=== PATIENT | male | born 1960 | race Caucasian/White ===

== ENCOUNTER 2017-06-18 09:32 | Inpatient (IN) | payer OTHER ==
[~2017-06-18] VITALS: Ht 172.7 cm; Wt 78.9 kg
[~2017-06-18 09:32] MED LIST: BENICAR40 MG PO; BRILINTA90 MG PO; HYDROXYZINE HCL25 MG PO; LEXAPRO10 MG PO; NORVASC5 MG PO; PRAVACHOL40 MG PO; PRAVASTATIN SOD40 MG PO; TEMAZEPAM15 MG PO; TERAZOSIN HCL1 MG PO; TERAZOSIN HCL2 MG PO; TRIBENZOR 40-11 EAC1 PO; VANCOMYCIN1 GM/250 M IV
[2017-06-18] MEDS ORDERED: MORPHINE SULFATE 4 MG/ML SYR IV STA (10:23)
[2017-06-18] MEDS ORDERED: ONDANSETRON HCL INJ 2 MG/ML VIAL IV STA (10:23)
[2017-06-18] MEDS ORDERED: SODIUM CHLORIDE 0.9% 1000ML 1,000 ML IV STA (10:23)
[2017-06-18] MEDS ORDERED: CLINDAMYCIN PHOS 900MG/ D5W 50 50 ML IV ONE (10:30)
[2017-06-18 11:18] LABS: BASOPHILS # (AUTO) 0.1 (0.0-0.1); BASOPHILS % 0.7 % (0.0-1.0); EOSINOPHILS # (AUTO) 0.1 (0.0-0.4); EOSINOPHILS % 0.8 % (0.0-6.0); HEMATOCRIT 36.4 % (38.2-49.6); HEMOGLOBIN 12.5 g/dL (14.0-18.0); LYMPHOCYTES # (AUTO) 0.6 (1.0-3.2); LYMPHOCYTES % 3.4 % (18.0-39.1); MEAN CORPUSCULAR HEMOGLOBIN 31.3 pg (28-32); MEAN CORPUSCULAR HGB CONC 34.3 g/dL (31-35); MONOCYTES # (AUTO) 1.9 (0.2-0.8); MONOCYTES % 10.2 % (4.4-11.3); NEUTROPHILS # (AUTO) 15.5 (2.1-6.9); NEUTROPHILS % 84.1 % (38.7-80.0); PLATELET COUNT 308 x10e3/uL (140-360); RED CELL DISTRIBUTION WIDTH 12.8 % (11.7-14.4)
[2017-06-18] MEDS ORDERED: MORPHINE SULFATE 2 MG/ML SYR ONE (11:29)
[2017-06-18 12:05] LABS: ALANINE AMINOTRANSFERASE 13 IU/L (0-55); ALBUMIN 3.6 g/dL (3.5-5.0); ALKALINE PHOSPHATASE 133 IU/L (40-150); ANION GAP 16.2 mmol/L (8-16); BLOOD UREA NITROGEN 11 mg/dL (7-26); BUN/CREATININE RATIO 15 (6-25); CALCIUM 9.3 mg/dL (8.4-10.2); CARBON DIOXIDE 23 mmol/L (22-29); CHLORIDE 100 mmol/L (98-107); CREATININE, SERUM 0.73 mg/dL (0.72-1.25); EST GLOMERULAR FILTRATION RATE > 60 ML/MIN (60-); GLUCOSE 88 mg/dL (74-118); POTASSIUM 4.2 mmol/L (3.5-5.1); SODIUM 135 mmol/L (136-145)
[2017-06-18] MEDS ORDERED: HYDROMORPHONE 2MG/ML INJ IV ONE (13:00)
[2017-06-18] MEDS ORDERED: HYDROMORPHONE 1MG/1ML INJ IV NR ×2 (13:30)
[2017-06-18] MEDS ORDERED: SODIUM CHLORIDE FLUSH 10 ML SYR INJ PRN (14:45)
[2017-06-18] MEDS ORDERED: ONDANSETRON HCL INJ 2 MG/ML VIAL IV PRN (14:45)
[2017-06-18] MEDS ORDERED: NIFEDIPINE ER30 M1 PO (15:28)
--- NOTE | 2017-06-18 16:01 | History and Physical ---
Mr. Urbina came in for right upper extremity and elbow swelling. HISTORY OF PRESENT ILLNESS: Mr. Gerald Urbina has a history of hypertension, history of prostate CA, history of hyperlipidemia. He was in his usual state of health until Thursday when the patient started with some swelling in the right elbow, which was characterized as pain and some swelling. The patient's pain and swelling got worse over the week. This morning, the patient came to the clinic and was found to have diffuse erythema, swelling, fever, and also pain and tenderness on moving his elbow, too. PAST MEDICAL HISTORY: History of hypertension. SURGICAL HISTORY: History of prostatectomy, hernia repair and back surgeries. The patient also had incision and drainage on multiple times in the ears too, also in the elbow in the past. MEDICATIONS: See nurse's note. ALLERGIES: SEE NURSE'S NOTE. SOCIAL HISTORY: No EtOH. No IV drug abuse. No smoking either. REVIEW OF SYSTEMS: Negative for chest pain. No shortness of breath. No nausea, vomiting, or diarrhea. No constipation or rectal bleeding. No hematochezia or hematemesis. Positive for some headache, but no blurry vision. PHYSICAL EXAMINATION VITALS: Stable. HEENT: Normocephalic and atraumatic. The pupils react to light and accommodation. CVS: S1 and S2 normal, regular rate and rhythm. ABDOMEN: Nontender and nondistended. UPPER EXTREMITIES: Right is tender to touch. Positive for pain and decreased range of motion. Positive for erythema and also swelling in the elbow. NEUROLOGIC: Alert and oriented times 3. No sensory or motor deficit noted. LABS: White count 13,000, hemoglobin 12.5, hematocrit 36.4. Chemistries: Lactic acid 7.3. ESR was 25. ASSESSMENT 1. Right upper extremity cellulitis. 2. Questionable septic arthritis. Consult with Dr. Hdz will be done. Also, consult with Dr. Espinosa will be done. PICC line was started. The patient will be started on clindamycin. He is allergic to vancomycin. Further recommendations per clinical course. We will continue to monitor the patient and check labs in the morning. Probably PICC line will also be started. Job#: [id number]
[2017-06-18 18:05] VITALS: BP 152/87
[2017-06-18] MEDS ORDERED: SODIUM CHLORIDE 0.9% 250ML 250 ML ONE (18:31)
[2017-06-18] MEDS: HYDROMORPHONE 1MG/1ML INJ IV PRN (18:38)
[2017-06-18] MEDS: CLINDAMYCIN 300MG 50 ML IV SCH (18:38)
[2017-06-18 19:00] VITALS: BP 152/87
[2017-06-18] MEDS ORDERED: SEVOFLURANE INHAL SOLN 250 ML PEN BTL ONE (19:43)
[2017-06-18] MEDS ORDERED: LIDOCAINE HCL 2% LOCAL INJ 5 ML SDV VIAL INJ ONE (19:43)
[2017-06-18] MEDS ORDERED: METOCLOPRAMIDE HCL 10 MG/2ML VIAL ONE (19:43)
[2017-06-18] MEDS ORDERED: ONDANSETRON HCL INJ 2 MG/ML VIAL ONE (19:43)
[2017-06-18] MEDS ORDERED: PROPOFOL IV EMULSION 10 MG/ML 20 ML VIAL ONE (19:43)
[2017-06-18] MEDS ORDERED: ROCURONIUM BROMIDE 10 MG/ML 5ML VIAL ONE (19:43)
[2017-06-18 20:00] VITALS: BP 138/83
[2017-06-18 20:12] VITALS: BP 138/83
--- NOTE | 2017-06-18 23:23 | Diagnostic Imaging Report ---
EXAM: CHEST XRAY LINE PLACEMENT, AP 1 view INDICATION: PICC placement COMPARISON: None FINDINGS: LINES/TUBES: Left approach PICC terminates in the expected location of the distal superior vena cava. LUNGS: No consolidations or edema. PLEURA: No effusions or pneumothorax. HEART AND MEDIASTINUM: Normal size and contour. BONES AND SOFT TISSUES: No acute findings. IMPRESSION: Left approach PICC terminates in the expected location of the distal superior vena cava. Signed by: Dr. Cristina Madera M.D. on 06/18/2017 11:20 PM
[2017-06-19] MEDS: HYDROMORPHONE 1MG/1ML INJ IV PRN ×2 (00:02→14:06)
[2017-06-19] MEDS: CLINDAMYCIN 300MG 50 ML IV SCH ×4 (00:20→18:16)
[2017-06-19] MEDS: ACETAMINOPHEN 325 MG TAB PO PRN ×2 (00:37→14:06)
[2017-06-19 01:01] VITALS: BP 120/77
[2017-06-19 05:47] VITALS: BP 139/70
[2017-06-19 06:22] LABS: BASOPHILS # (AUTO) 0.1 (0.0-0.1); BASOPHILS % 0.6 % (0.0-1.0); EOSINOPHILS # (AUTO) 0.5 (0.0-0.4); EOSINOPHILS % 2.7 % (0.0-6.0); HEMATOCRIT 31.4 % (38.2-49.6); HEMOGLOBIN 10.5 g/dL (14.0-18.0); LYMPHOCYTES # (AUTO) 0.5 (1.0-3.2); LYMPHOCYTES % 3.1 % (18.0-39.1); MEAN CORPUSCULAR HGB CONC 33.4 g/dL (31-35); MEAN CORPUSCULAR VOLUME 92.6 fL (81-99); MONOCYTES # (AUTO) 1.9 (0.2-0.8); MONOCYTES % 11.2 % (4.4-11.3); NEUTROPHILS % 81.5 % (38.7-80.0); PLATELET COUNT 239 x10e3/uL (140-360); RED BLOOD COUNT 3.39 x10e6/uL (4.3-5.7); RED CELL DISTRIBUTION WIDTH 13.1 % (11.7-14.4)
--- NOTE | 2017-06-19 07:41 | Diagnostic Imaging Report ---
Right Elbow MRI without contrast. History: Elbow pain. Infection. Septic joint. Comparison: None Technique: Multiplanar multisequence MRI of the elbow without contrast Findings: There is abnormal skin thickening with adjacent abnormal soft tissue edema at the posterior aspect of the elbow. There are what appear to be small foci of air in the subcutaneous tissues best seen on coronal series 6 image 9, sagittal series 5 image 3 and axial series 4 image 22. There is an adjacent ill-defined fluid collection adjacent to the olecranon best seen on series 8 image 17 through 22. This measures 1.5 cm in maximal dimension. There is focal cortical erosion at the posterior lateral humeral condyle as seen on coronal series 6 image 12 and sagittal series 5 image 7 as well as axial series 3 image 18. There is an elbow joint effusion and synovitis. There is abnormal edema in the adjacent posterior elbow musculature. The common extensor tendon origin is normal. The common flexor tendon origin is normal. The anterior and posterior bands of the MCL are normal. The lateral ulnar collateral ligament and radial collateral ligament proper are normal. Signal intensity within the ulnar nerve is normal. The biceps and brachialis tendon insertions are normal. The triceps tendon is normal. No fracture, osteonecrosis, or dislocation. Impression: Findings worrisome for cellulitis, developing phlegmon, myositis, septic arthritis and early osteomyelitis in the elbow as described above. Findings discussed by Dr. Martin with nurse Ms. Baron who is taking care of the patient on June 19, 2017 at 7:30 AM Signed by: Dr. Catrachito Martin M.D. on 06/19/2017 7:38 AM
[2017-06-19 08:00] VITALS: BP 141/81
[2017-06-19 10:46] LABS: ANISOCYTOSIS SLIGHT; EOSINOPHILS % (MANUAL) 8 % (0-7); HYPOCHROMASIA SLIGHT; MONOCYTES % (MANUAL) 5 % (3.4-9.0); NEUTROPHILS % (MANUAL) 87 % (40-74); PLATELET ESTIMATE ADEQUATE; PLATELET MORPHOLOGY COMMENT NORMAL; RBC MORPHOLOGY COMMENT NORMAL
[2017-06-19 12:00] VITALS: BP 181/95
[2017-06-19] MEDS ORDERED: MIDAZOLAM HCL 2 MG/2 ML VIAL ONE (13:56)
[2017-06-19] MEDS ORDERED: FENTANYL CITRATE/PF 100MCG/2 ML INJ ONE (13:56)
[2017-06-19 16:00] VITALS: BP 120/71
[2017-06-19] MEDS ORDERED: DAPTOMYCIN 400 MG in SODIUM CHLORIDE 0.9% 100 ML IV SCH (18:15)
[2017-06-19 20:00] VITALS: BP 135/68
[2017-06-19] MEDS ORDERED: BACITRACIN 50,000 UNIT VIAL ONE ×2 (21:08→22:54)
[2017-06-19] MEDS ORDERED: ACETAMINOPHEN 1000 MG/100 ML IV PRN (23:45)
[2017-06-19] MEDS ORDERED: NALOXONE HCL INJ 0.4 MG/ML AMP IV PRN (23:45)
[2017-06-19] MEDS ORDERED: ONDANSETRON HCL INJ 2 MG/ML VIAL IV PRN (23:45)
[2017-06-19] MEDS ORDERED: DIPHENHYDRAMINE HCL INJ 50 MG/ML VIAL IM/IV PRN (23:45)
[2017-06-19] MEDS ORDERED: HYDROMORPHONE 0.2MG/ML-SOD CHL 30ML PCA SYRINGE IV PRN (23:45)
[2017-06-19] MEDS ORDERED: SODIUM CHLORIDE 0.9% 1000ML 1,000 ML IV SCH (23:59)
[2017-06-20] MEDS ORDERED: IPRATROPIUM BROMIDE 0.02% 2.5 ML NEB ONE (00:21)
[2017-06-20 01:09] VITALS: BP 134/60
[2017-06-20] MEDS: SODIUM CHLORIDE 0.9% 1000ML 1,000 ML IV SCH ×3 (01:12→21:47)
--- NOTE | 2017-06-20 01:47 | Operative Report ---
DATE OF PROCEDURE: June 19, 2017 PREOPERATIVE DIAGNOSES: 1. Cellulitis, right arm. 2. Septic elbow, right arm. POSTOPERATIVE DIAGNOSES: 1. Cellulitis, right arm. 2. Skin necrotitis, right arm. 3. Right olecranon septic bursitis. 4. Right septic elbow. OPERATIONS/PROCEDURES PERFORMED: Patient underwent: 1. Irrigation and debridement of the right septic elbow. 2. Irrigation and debridement of the right septic bursitis. 3. Debridement of soft tissue, skin, blisters, and necrotitis. STOPPER MAKER: None. INTRAOPERATIVE CONSULTATION: With Dr. Héctor Whitney of general surgery department. ANESTHESIA: General endotracheal intubation anesthesia. COMPLICATIONS: None. BRIEF DESCRIPTION OF PATIENT'S OPERATIVE PROCEDURE: Mr. Urbina was taken to the operating room and placed in the supine position on the operating room table. Following induction of general anesthesia as well as endotracheal intubation, the patient's right upper extremity was examined under anesthesia. He was found to have swelling involving the arm extending from the mid upper arm and to the level of the wrist. There was erythema in the forearm. The patient had multiple soft tissue superficial skin lesions and eschars in the arm and upper arm. The patient additionally had a sebaceous cyst just proximal to the antecubital fossa. He had a well-healed incision over his olecranon process. There were multiple areas of early skin fluffing and superficial blisters in the forearm, which contained serous fluid. The patient's upper extremity was prepped and draped in standard surgical fashion. The case was begun by creating incision beginning at the level of lateral epicondyle and extending distally over the proximal radius. This incision was carried through skin only. Blunt dissection was used to deepen the incision to the level of the insertion site for the mobile wad. This was incised in line with the skin incision to the level of joint capsule. The joint capsule was then opened and purulent-appearing fluid was expressed from the joint. Cultures were taken at this time. The wound was thoroughly irrigated with 3 liters of Bacitracin-laden normal saline, followed by 3 liters of regular normal saline. The joint surfaces were evaluated and there was no evidence of cartilage damage. The wound was then closed in a multilayer fashion. The patient was also found to have an area of fluctuance over the olecranon process. A spinal needle was placed beneath the skin over the olecranon, and purulent fluid was excised from the olecranon region. This was also cultured and sent to pathology for evaluation. A curvilinear incision was then placed over the olecranon region. This incision was carried through skin only. Blunt dissection was used to deepen the incision to the olecranon itself. A pocket of purulence was entered. The bursa was excised. The soft tissues were debrided to healthy tissue. A Anastasia drain was placed at the bed of the wound and the soft tissues were then closed over the Anastasia drain taking care to protect the drain while the soft tissues were closed. Attention was then turned to the patient's superficial necrotitis. Several regions of the soft tissue of the forearm and posterior arms were opened superficially, and small areas of skin were excised. The fluid in the soft tissues beneath the skin layer was then expressed through these opened lesions. An intraoperative surgical consultation was obtained with Dr. Whitney to evaluate the forearm for the possibility of necrotizing fasciitis, and general surgeon determined that the patient did not have necrotizing fasciitis, but just superficial skin necrosis and blistering. He assisted with the direction of treatment for these blisters during the surgery. Once all the blisters had been opened and the subcutaneous fluid expressed, sterile dressings were placed over the area of skin loss. The wounds were dressed sterilely and the patient was placed in a well-padded posterior splint. The patient was then awakened, taken to postanesthesia care unit in stable condition. Job#: [id number]
[2017-06-20 04:00] VITALS: BP 158/77
[2017-06-20] MEDS ORDERED: CLINDAMYCIN PHOS 900MG/ D5W 50 50 ML IV SCH (06:00)
[2017-06-20 06:38] LABS: BASOPHILS # (AUTO) 0.1 (0.0-0.1); BASOPHILS % 0.3 % (0.0-1.0); EOSINOPHILS # (AUTO) 0.1 (0.0-0.4); EOSINOPHILS % 0.7 % (0.0-6.0); HEMOGLOBIN 10.1 g/dL (14.0-18.0); LYMPHOCYTES # (AUTO) 0.6 (1.0-3.2); LYMPHOCYTES % 3.6 % (18.0-39.1); MEAN CORPUSCULAR HEMOGLOBIN 31.5 pg (28-32); MEAN CORPUSCULAR HGB CONC 33.7 g/dL (31-35); MEAN CORPUSCULAR VOLUME 93.5 fL (81-99); MONOCYTES # (AUTO) 1.9 (0.2-0.8); MONOCYTES % 11.5 % (4.4-11.3); NEUTROPHILS # (AUTO) 14.1 (2.1-6.9); NEUTROPHILS % 83.3 % (38.7-80.0); PLATELET COUNT 242 x10e3/uL (140-360); RED BLOOD COUNT 3.21 x10e6/uL (4.3-5.7); RED CELL DISTRIBUTION WIDTH 12.9 % (11.7-14.4)
[2017-06-20 07:04] LABS: ALANINE AMINOTRANSFERASE 15 IU/L (0-55); ALBUMIN 2.7 g/dL (3.5-5.0); ALBUMIN/GLOBULIN RATIO 0.8 (0.8-2.0); ALKALINE PHOSPHATASE 93 IU/L (40-150); ANION GAP 13.7 mmol/L (8-16); BLOOD UREA NITROGEN 8 mg/dL (7-26); BUN/CREATININE RATIO 12 (6-25); CALCIUM 8.7 mg/dL (8.4-10.2); CARBON DIOXIDE 23 mmol/L (22-29); CHLORIDE 98 mmol/L (98-107); CREATININE, SERUM 0.68 mg/dL (0.72-1.25); EST GLOMERULAR FILTRATION RATE > 60 ML/MIN (60-); GLUCOSE 96 mg/dL (74-118); POTASSIUM 3.7 mmol/L (3.5-5.1); SODIUM 131 mmol/L (136-145)
[2017-06-20 08:00] VITALS: BP 147/74
[2017-06-20 08:56] LABS: BAND NEUTROPHILS % (MANUAL) 4 %; EOSINOPHILS % (MANUAL) 1 % (0-7); LYMPHOCYTES % (MANUAL) 2 % (19-48); MONOCYTES % (MANUAL) 3 % (3.4-9.0); NEUTROPHILS % (MANUAL) 90 % (40-74); PLATELET ESTIMATE ADEQUATE; PLATELET MORPHOLOGY COMMENT NORMAL; RBC MORPHOLOGY COMMENT NORMAL
--- NOTE | 2017-06-20 11:51 | Progress Note ---
DATE: Mr. Urbina is feeling better today. He did have the surgery yesterday. He has no new complaints. PHYSICAL EXAMINATION GENERAL: Alert, oriented, does not seem to be in any acute distress. VITAL SIGNS: Stable, temperature 100.9 to 100, heart rate 107, respirations 20, blood pressure 135/68. HEENT: Normocephalic. Not icteric. NECK: Supple. CHEST: Clear bilaterally. HEART: S1 and S2, no S3, S4 and no murmur. ABDOMEN: Soft. Bowel sounds present. No tenderness. EXTREMITIES: The right arm with erythema and edema. He is status post surgery. The dressing looks good. SKIN: No rash. LABORATORY DATA: White count 18.4, hemoglobin 12.5 today. His platelets 308,000. Sodium 135, potassium 4.2, creatinine 0.73. His C-reactive protein is 112. Culture is still pending. IMPRESSION 1. Cellulitis. 2. Bursitis. PLAN: Will keep on Daptomycin and will increase the dose. Will add cefepime since he has history of steroid now. Will await culture and sensitivity and will follow. Job#: [id number]
[2017-06-20 12:00] VITALS: BP 129/65
[2017-06-20] MEDS: DAPTOMYCIN 450 MG in SODIUM CHLORIDE 0.9% 100 ML IV SCH (13:00)
[2017-06-20] MEDS: MEROPENEM 1 GM VIAL IV SCH ×3 (14:00→21:46)
[2017-06-20] MEDS ORDERED: MEROPENEM 1GM 100 ML IV SCH (14:00)
--- NOTE | 2017-06-20 18:41 | Consultation ---
DATE OF CONSULTATION: June 19, 2017 REASON FOR CONSULTATION: Bursitis and cellulitis. HISTORY OF PRESENT ILLNESS: This was dictated late entry. The patient was seen on June 19, 2017. The patient was seen in the afternoon. Then, I had discussed the case with Dr. Hdz in the evening and then again midnight, so to summarize, the patient who is a 56-year-old white gentleman pleasant, known to me from 3 years ago when he had redness and swelling of his right upper extremity cellulitis, had to be treated with intravenous antibiotic. The patient did improve and I did not see him since then. At that time, he also had infection of his elbow and he was seen by Dr. Hdz, had an I and D. Again nothing really since then. The patient does have an underlying history of skin disease, for which he has been seen by powder nipper. The patient had some type of dermatitis. The patient apparently 2 weeks ago had a local injection of steroid inside these lesions. A week ago, he started to have redness and swelling in the arm, which involved the whole arm. When I saw the patient yesterday afternoon, I did not have the MRI, but the whole arm was red and swollen and he was on antibiotics and he was saying he is feeling slightly better. He tells me for the last 3 days, he has been having a little bit of low fever, not feeling well, right upper extremity redness and swelling. After I saw the patient in the afternoon and Dr. Nam called me to tell me now that the MRI was showing possibility of infected joint. At that time, we contacted Dr. Hdz. Dr. Hdz did come to see the patient around 07:00 pm and we discussed the case. He took him to the OR for irrigation and debridement of the right elbow, debridement of right septic bursitis, and debridement of soft tissue, skin, and blister with necrosis. Patient came from the OR yesterday at about midnight. I did see him earlier again today and he was feeling better. This patient who is like I said known to me, has history of hypertension, history of multiple skin lesions from dermatitis, would be followed by dermatology. He had history of hypertension, history of prostate cancer, history of hyperlipidemia, history of cellulitis of upper extremity, history of infection in the bursa and right upper 3 years ago where he was given IV antibiotic. PAST MEDICAL HISTORY: As above. PAST SURGICAL HISTORY: Also as above. History of prostatectomy, hernia repair, back surgeries, and multiple skin infections. 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 SOCIAL HISTORY: There is no smoking, drug abuse, or alcohol abuse. . FAMILY HISTORY: Noncontributory. REVIEW OF SYSTEMS: HEENT: There is no headache, visual changes, hearing changes. GI: There is no nausea, no vomiting, no diarrhea. CARDIAC: There is no arrhythmia. NEURO: No seizure activity. SKIN: There is a rash, which is old. He uses local steroid, most recently some injection of steroid. JOINT: Except for the right elbow, he denies any other joint problem. PHYSICAL EXAMINATION GENERAL: He is currently alert, oriented, does not seem to be in acute distress. VITALS: Stable, currently afebrile. HEENT: Not icteric. Normocephalic. NECK: Supple. No JVD. No lymphadenopathy. No thyromegaly. CHEST: Clear bilaterally. HEART: S1 and S2. No S3, S4, murmur. ABDOMEN: Soft. Bowel sounds present. EXTREMITIES: No edema. The right whole arm was erythematous with induration of elbow, maybe some effusion was noted. IMPRESSION AND PLAN: When I first saw the patient, my impression was cellulitis of the arm. Await MRI. Agree with antibiotic, clindamycin and we will add daptomycin. After further discussion and finding on the MRI, agree with I and D. Patient did go for incision and drainage by Dr. Hdz. Labs, I mentioned above. I did discuss the case with him after the surgery. He had irrigation and debridement. There was cellulitis, some skin necrosis, but this necrosis I do not think is due to soft tissue infection necrosis. I think it is from his skin disease. There was also right olecranon septic bursitis and the right septic elbow. The elbow MRI was suggestive of cellulitis developing phlegmon, myositis, septic arthritis, and early osteo of the elbow. Cultures are being sent. So, impression is bursitis and cellulitis in a patient who has skin disease. We will put him on daptomycin at 6 mg/kg IV piggyback q.24 hours. PICC line has been inserted. Will follow sed rate and C-reactive protein. We will follow CBC. He can discontinue clindamycin tomorrow. History of hypertension and history of skin disease. We will follow with you. Job#: [id number] PAT
[2017-06-20 20:00] VITALS: BP 130/61
[2017-06-21] VITALS: BP 133/67
[2017-06-21] MEDS: ACETAMINOPHEN 325 MG TAB PO PRN ×2 (00:38→20:33)
[2017-06-21 04:00] VITALS: BP 125/63
[2017-06-21] MEDS: SODIUM CHLORIDE 0.9% 1000ML 1,000 ML IV SCH ×2 (05:45→17:26)
[2017-06-21 08:00] VITALS: BP 132/75
[2017-06-21 12:00] VITALS: BP 139/64
[2017-06-21] MEDS: MEROPENEM 1 GM VIAL IV SCH ×2 (14:00→23:19)
[2017-06-21 16:00] VITALS: BP 144/78
[2017-06-21] MEDS: DAPTOMYCIN 450 MG in SODIUM CHLORIDE 0.9% 100 ML IV SCH (16:40)
[2017-06-21 20:00] VITALS: BP 128/70
[2017-06-22] VITALS: BP 114/73
--- NOTE | 2017-06-22 00:53 | Progress Note ---
DATE: Mr. Urbina continues to do well. He has no new complaints. PHYSICAL EXAMINATION: GENERAL: He is currently alert, oriented, does not seem to be in acute distress. VITAL SIGNS: Stable, currently afebrile. HEENT: He does not appear icteric. NECK: Supple. CHEST: Clear. COR: S1 and S2. No murmur. ABDOMEN: Soft. Bowel sounds present. No tenderness. EXTREMITIES: At the elbow, there is no drainage. His wound culture is showing Staphylococcus aureus, sensitivity still pending. IMPRESSION: Cellulitis, bursitis, perhaps early osteo in a patient who is ALLERGIC TO VANCOMYCIN with history of dermatitis. He is currently on daptomycin and meropenem, continue with the same for time being. Probably, will discharge home tomorrow with intravenous antibiotics, will plan initially on 6 to 8 weeks, we will see how he is going to do clinically. Will see him as an outpatient. Will follow up closely. Will see Dr. Hdz next week. Job#: [id number]
[2017-06-22] MEDS: SODIUM CHLORIDE 0.9% 1000ML 1,000 ML IV SCH (01:45)
[2017-06-22 04:00] VITALS: BP_SYST 120; BP_SYST 121; BP_DIAS 73; BP_DIAS 75
[2017-06-22] MEDS: MEROPENEM 1 GM VIAL IV SCH ×2 (06:00→14:00)
[2017-06-22 08:00] VITALS: BP 118/58
[2017-06-22 12:03] VITALS: BP 116/87
[2017-06-22] MEDS: DAPTOMYCIN 450 MG in SODIUM CHLORIDE 0.9% 100 ML IV SCH (13:00)
[2017-06-22 15:49] VITALS: BP 125/70
== END 2017-06-22 16:52 | disposition home or self-care (01) | DRG 501 ==
LOC: ER 09:32 → ERHOLD 16:44 → MED/SURG2 16:47
PROVIDERS: ADMIT Family Medicine; ATTEND Family Medicine
PROC: 02HV33Z Insertion of Infusion Device into Superior Vena Cava, Percutaneous Approach (ICD-10-PCS; 2017-06-18)
PROC: 0MB30ZZ Excision of Right Elbow Bursa and Ligament, Open Approach (ICD-10-PCS; 2017-06-19)
PROC: 0HBDXZX Excision of Right Lower Arm Skin, External Approach, Diagnostic (ICD-10-PCS; 2017-06-19)
PROC: 0J9G0ZX Drainage of Right Lower Arm Subcutaneous Tissue and Fascia, Open Approach, Diagnostic (ICD-10-PCS; 2017-06-19)
PROC: 0R9L0ZX Drainage of Right Elbow Joint, Open Approach, Diagnostic (ICD-10-PCS; principal; 2017-06-19 21:30)
DX: M00.021 Staphylococcal arthritis, right elbow (principal); L03.113 Cellulitis of right upper limb; I96 Gangrene, not elsewhere classified; B95.62 Methicillin resistant Staphylococcus aureus infection as the cause of diseases classified elsewhere; M71.121 Other infective bursitis, right elbow; I10 Essential (primary) hypertension; L30.9 Dermatitis, unspecified; Z85.46 Personal history of malignant neoplasm of prostate; D64.9 Anemia, unspecified
CPT/HCPCS: 36415; 71045; 80053; 83605; 85025; 85651; 86140; 87040; 87071; 87075; 87186; 87205; 96374; 99284; J1170; J2001; J2185; J2250; J2270; J2405; J2765; J7030; J7050

== ENCOUNTER → 2017-07-15 | Outpatient (CLI) | payer OTHER ==
[~2017-07-15] MED LIST changes: +NIFEDIPINE ER30 M1 PO
--- NOTE | 2017-07-15 19:10 | Diagnostic Imaging Report ---
Labeled WBC Study Reason for exam: 56 M with history of staph infection in right elbow in Apr 2014. Now with cellulitis of right upper extremity centered at the elbow. Concern for recurrent osteomyelitis. Comparison: MRI right elbow 06/18/2017 Report: The patient's own white blood cells were labeled with Tc-99m HMPAO 29 mCi by a commercial radiopharmacy. Images of the right upper extremity from the surgical neck of the proximal humerus to the mid forearm were obtained at 3.5 hours post administration of the labeled white blood cells. Irregularly increased tracer activity is seen throughout the right humeral shaft from neck to the olecranon fossa. Increased tracer is also seen in the right radius from the radial neck to the mid diaphysis. No increased tracer is seen at the articular surfaces of the right elbow. IMPRESSION: Evidence of osteomyelitis in the right humeral and radial diaphyses. Signed by: Dr. Megan Segal M.D. on 07/15/2017 7:07 PM
== END ==
LOC: NM 08:19
PROVIDERS: ATTEND Specialist
DX: Z47.89 Encounter for other orthopedic aftercare (principal); L03.113 Cellulitis of right upper limb
CPT/HCPCS: 78806; A9521; A9556; A9570